=== PATIENT | male | born 1995 | race African-American/Black ===

== ENCOUNTER 2017-07-20 04:13 | Emergency (ER) | payer OTHER ==
[2017-07-20 05:45] LABS: EGFR Non-African American 103.4 (>60)
[2017-07-20] MEDS ORDERED: Al Hydrox/Mg Hydrox/Simet LIQ* 30 ML UDC PO ONE (05:54)
[2017-07-20] MEDS ORDERED: Lidocaine 2% VISCOUS* 15 ML UDC PO ONE (05:54)
[2017-07-20 06:29] LABS: ABS Basophils 0 10^3/ul (0-0.2); ABS Eosinophils 0 10^3/ul (0-0.6); ABS Lymphocytes 2.2 10^3/ul (1.0-4.8); ABS Monocytes 0.7 10^3/ul (0-0.8); ABS Neutrophils 5.1 10^3/ul (1.5-7.7); ABS Nucleated RBC 0 10^3/ul; Eosinophil % 0.3 % (0-6); Hematocrit 39 % (42-52); Hemoglobin 14.2 g/dl (14.0-18.0); Lymphocyte % 27.2 % (25-47); Mean Corpuscular HGB Conc 36 g/dl (31-36); Mean Corpuscular Hemoglobin 31 pg (27-31); Mean Corpuscular Volume 86 fL (80-94); Mean Platelet Volume 9 um3 (7.4-10.4); Nucleated Red Blood Cells % 0.1; Platelet Count 308 10^3/ul (150-450); Red Blood Count 4.58 10^6/ul (4.0-5.4); Red Cell Distribution Width 12 % (10.5-15)
--- NOTE | 2017-07-20 06:47 | ED ---
Ten Knutson Tecjoon scribfawn for Zane Ferrer MD on 07/20/17 at 0608 . Throat Pain/Nasal Congestion - HPI Summary HPI Summary: This patient is a 21 year old male presenting to [facility] with a chief complaint of throat pain since 2330 last night. Patient states he feels a tightness in his throat, which occasionally radiates to a burning pain in his chest. The pain is rated 2/10 in severity. Symptoms aggravated by nothing. Symptoms alleviated by nothing. The patient treated the pain with nothing [employer]. Patient additionally denies nausea. Patient denies fever, nausea. Patient is currently taking antibiotics (amoxicillin) for tonsillitis. - History of Current Complaint Chief Complaint: EDThroatPain Time Seen by Provider: 07/20/17 05:07 Hx Obtained From: Patient Onset/Duration: Lasting Hours, Still Present Severity: Mild - 2/10 Cough: None - Allergies/Home Medications Allergies/Adverse Reactions: Allergies Allergy/AdvReac Type Severity Reaction Status Date / Time No Known Allergies Allergy Verified 07/20/17 04:16 PMH/Surg Hx/FS Hx/Imm Hx Previously Healthy: Yes Opthamlomology History: Denies: Hx Legally Blind EENT History: Denies: Hx Deafness Infectious Disease History: No Infectious Disease History: Denies: Traveled Outside the [place] in Last 30 Days - Family History Known Family History: Negative: Hypertension - Social History Occupation: Student Alcohol Use: Daily Hx Substance Use: No Substance Use Type: Reports: None Hx Tobacco Use: Yes Smoking Status (MU): Light Every Day Tobacco Smoker Review of Systems Negative: Fever Positive: Sore Throat Positive: Chest Pain All Other Systems Reviewed And Are Negative: Yes Physical Exam - Summary Physical Exam Summary: VITAL SIGNS: Reviewed. GENERAL: Patient is a well-developed and nourished male who is lying comfortable in the stretcher. Patient is not in any acute respiratory distress. HEAD AND FACE: No signs of trauma. No ecchymosis, hematomas or skull depressions. No sinus tenderness. EYES: PERRLA, EOMI x 2, No injected conjunctiva, no nystagmus. EARS: Hearing grossly intact. Ear canals and tympanic membranes are within normal limits. MOUTH: Oropharynx within normal limits. NECK: Supple, trachea is midline, no adenopathy, no JVD, no carotid bruit, no c- spine tenderness, neck with full ROM. CHEST: Symmetric, no tenderness at palpation LUNGS: Clear to auscultation bilaterally. No wheezing or crackles. CVS: Regular rate and rhythm, S1 and S2 present, no murmurs or gallops appreciated. ABDOMEN: Soft, non-tender. No signs of distention. No rebound no guarding, and no masses palpated. Bowel sounds are normal. EXTREMITIES: FROM in all major joints, no edema, no cyanosis or clubbing. NEURO: Alert and oriented x 3. No acute neurological deficits. Speech is normal and follows commands. SKIN: Dry and warm Triage Information Reviewed: Yes Vital Signs On Initial Exam: Initial Vitals Temp Pulse Resp BP Pulse Ox 98.3 F 98 18 146/99 100 07/20/17 04:14 07/20/17 04:14 07/20/17 04:14 07/20/17 04:14 07/20/17 04:14 Vital Signs Reviewed: Yes Diagnostics - Vital Signs Vital Signs Temp Pulse Resp BP Pulse Ox 07/20/17 05:30 86 144/79 99 07/20/17 05:22 100 100 07/20/17 05:21 164/80 07/20/17 04:14 98.3 F 98 18 146/99 100 - Laboratory Lab Results: Lab Results 07/20/17 07/20/17 07/20/17 Range/Units 05:15 05:30 05:31 Sodium 133 (133-145) mmol/L Potassium 3.6 (3.5-5.0) mmol/L Chloride 97 L (101-111) mmol/L Carbon Dioxide 27 (22-32) mmol/L Anion Gap 9 (2-11) mmol/L BUN 20 (6-24) mg/dL Creatinine 0.94 (0.67-1.17) mg/dL Est GFR ( Amer) 133.0 (>60) Est GFR (Non-Af Amer) 103.4 (>60) BUN/Creatinine Ratio 21.3 H (8-20) Glucose 93 (70-100) mg/dL Calcium 10.2 (8.6-10.3) mg/dL Total Bilirubin 0.50 (0.2-1.0) mg/dL AST 23 (13-39) U/L ALT 28 (7-52) U/L Alkaline Phosphatase 86 (34-104) U/L Total Protein 7.9 (6.4-8.9) g/dL Albumin 4.5 (3.2-5.2) g/dL Globulin 3.4 (2-4) g/dL Albumin/Globulin Ratio 1.3 (1-3) Influenza A (Rapid) Negative (Negative) Influenza B (Rapid) Negative (Negative) Group A Strep Rapid Negative (Negative) Result Diagrams: 07/20/17 05:15 07/20/17 05:15 Lab Statement: Any lab studies that have been ordered have been reviewed, and results considered in the medical decision making process. EENT Course/Dx - Course Course Of Treatment: This patient is a 21 year old male presenting to [facility] with a chief complaint of throat pain since 2330 last night. Patient states he feels a tightness in his throat, which occasionally radiates to a burning pain in his chest. Bloodwork Obtained. Urinalysis Obtained. In the ED course the patient was given Lidocaine, Maalox. Patient will be discharged with gastroesophageal reflux and a prescription for Protonix. Patient is advised to follow up with PCP in one week. The patient is agreeable with this plan. - Diagnoses Provider Diagnoses: Gastroesophageal reflux Discharge - Discharge Plan Condition: Stable Disposition: HOME Prescriptions: Pantoprazole TAB (NF) [Protonix TAB (NF)] 40 mg PO DAILY #30 tab Patient Education Materials: Gastroesophageal Reflux Disease (ED) Referrals: No Primary Care Phys,NOPCP [Primary Care Provider] - 4 Days Additional Instructions: Return to the ED for any new or worsening symptoms. The documentation as recorded by the Ten garrido Tecjoon accurately reflects the service I personally performed and the decisions made by Carissa garcia Abdul, MD.
[2017-07-20 06:56] VITALS: BP 139/92
== END 2017-07-20 06:56 | disposition home or self-care (01) ==
LOC: ED 04:13
DX: K21.9 Gastro-esophageal reflux disease without esophagitis (principal); J02.9 Acute pharyngitis, unspecified; F17.210 Nicotine dependence, cigarettes, uncomplicated; R07.9 Chest pain, unspecified
CPT/HCPCS: 36415; 80053; 85025; 86308; 87502; 87651; 99282; A9270-GY